=== PATIENT | male | born 1985 | race Caucasian/White ===

== ENCOUNTER 2018-08-12 21:07 | Observation (INO) | payer OTHER ==
[~2018-08-12] VITALS: Ht 177.8 cm; Wt 96.4 kg
[2018-08-12 21:15] VITALS: Ht 177.8 cm; Wt 96.4 kg
--- NOTE | 2018-08-12 22:06 | NUR ---
PATIENT [id number] PRESENTS TO THE ED WITH C/O ABD PAIN, NAUSEA, DIARRHEA AND BILATERAL LOWER BACK FLANK PAIN. PATIENT STATES HE STARTED FEELING SICK 3 DAYS AGO- NAUSEA STARTED TODAY. PATIENT WENT TO URGENT CARE AND WAS TOLD HE HAD BLOOD IN HIS URINE AND TO GO TO ER. PATIENTS BREATHING EVEN AND UNLABORED. SKIN WARM, DRY AND INTACT- PLACED PATIENT IN GOWN AND ON MONITORS FOR CONTINUED OBSERVATION.
--- NOTE | 2018-08-12 22:24 | NUR ---
DR STAPLETON BEDSIDE MSE
[2018-08-12 23:34] LABS: UA SPECIFIC GRAVITY <=1.005 (1.005-1.035); microscopic required? YES; urine erythrocyte 1+ (NEGATIVE)
[2018-08-13 00:02] LABS: BASOPHIL % 0.3 % (0-2); PLATELET COUNT 302 x10^3mcL (130-400); RED CELL DISTRIBUTION WIDTH 13.1 % (11.5-14.5)
--- NOTE | 2018-08-13 00:59 | NUR ---
CALLED LAB REQUESTING RESULTS OF HEMATOLOGY AND CHEMISTRY.
[2018-08-13 01:06] LABS: CALCIUM 9.3 mg/dL (8.5-10.1); CARBON DIOXIDE 32.1 mmol/L (21-32); CREATININE SERUM 2.4 mg/dL (0.7-1.3); POTASSIUM SERUM 4.5 mmol/L (3.5-5.1)
[2018-08-13 01:13] LABS: BILIRUBIN TOTAL 0.5 mg/dL (0.20-1.00); TOTAL PROTEIN, SERUM 7.9 g/dL (6.4-8.2)
--- NOTE | 2018-08-13 01:26 | NUR ---
PATIENT LYING ON GURNEY- BREATHING EVEN AND UNLABORED. NO SS OF DISTRESS NOTED. WILL CONTINUE TO MONITOR.
--- NOTE | 2018-08-13 03:23 | NUR ---
PATIENT LYING ON GURNEY- WATCHING TV. NO SS OF DISTRESS NOTED. WILL CONTINUE TO MONITOR.
--- NOTE | 2018-08-13 05:30 | NUR ---
PROVIDED PATIENT A MEAL AND SOMETHING TO DRINK. OK'D BY DR. STAPLETON.
--- NOTE | 2018-08-13 06:43 | NUR ---
PROVIDED WARM BLANKETS FOR PATIENT COMFORT. PATIENT SLEEPING ON GURNEY WAITING FOR ROOM ASSIGNMENT TO ADMIT. PATIENT BREATHING EVEN AND UNLABORED. NO OTHER SS OF DISTRESS NOTED.
--- NOTE | 2018-08-13 06:57 | NUR ---
PROVIDED REPORT TO ANDRES MARMOLEJO FOR FURTHER CARE OF PATIENT.
--- NOTE | 2018-08-13 07:11 | NUR ---
REPORT RECEIVED FROM ANDRES MILLER TO ASSUME CARE OF PT. PT LYING ON BACK NO S/S OF DISTRESS. RESPIRATIONS E/U. FAMILY AT BEDSIDE. VITALS STABLE WILL CONTINUE TO AWAIT FOR ROOM AND ADMIT ORDERS
--- NOTE | 2018-08-13 08:20 | NUR ---
PT AMBULATED TO RESTROOM WITH NO S/S OF DISTRESS. DENEIS PAIN. ALERT AND ORIENTED. WILL COTNINUE TO MONITOR
--- NOTE | 2018-08-13 08:48 | NUR ---
RECEIVED REPORT FROM JALEEL CAMPOS IN ED. AWAITING PATIENT ARRIVAL TO FLOOR.
--- NOTE | 2018-08-13 08:52 | NUR ---
REPORT GIVEN TO CHUNG TO ASSUME CARE OF PT
--- NOTE | 2018-08-13 11:56 | NUR ---
IN TO BEGIN FLUIDS. PT IV IS NOT FLUSHING. WILL INSERT NEW IV.
[2018-08-13 13:07] VITALS: BP 132/73
[2018-08-13 14:05] VITALS: BP 119/76
--- NOTE | 2018-08-13 15:48 | NUR ---
IN TOP SEE PATIENT AND ATTEMPT INSERTION OF IV. ATTEMPTED X2 WITH NO SUCCESS. PT REFUSING FURTHER ATTEMPTS UNTIL HE HAS HAD A CHANCE TO REST.
--- NOTE | 2018-08-13 19:47 | NUR ---
REPORT GIVEN TO SHAQUILLE CAMPOS. PT RESTING COMFORTABLY IN BED WITH MOTHER AT BEDSIDE. IV TO LFA IS PATENT AND INFUSING LR @ 80 ML/HR. NO REDNESS OR PAIN. PT ON ROOM AIR. NO C/O SOB AND NO DISTRESS NOTED. ALL QUESTIONS AND CONCERNS ADDRESSED.
--- NOTE | 2018-08-13 20:00 | NUR ---
PT IS A/A/O X4, MOTHER AT BEDSIDE. PT DENIES DIZZINESS AND HEADACHE. BREATH SOUNDS CLEAR. BREATHING EVEN AND UNLABORED ON ROOM AIR. DENIES CHEST PAIN AND PRESSURE THUS FAR. BOWEL SOUNDS ACTIVE. NO C/O N/V AND ABD PAIN. DENIES FLANK PAIN THUS FAR. IV INTACT ON THE LEFT FOREARM INFUSING WITH LR AT 80 ML/HR. MADE PT COMFORTABLE. PLACED CALL LIGHT WITH IN REACH. WILL CONTINUE TO MONITOR.
[2018-08-13 20:58] VITALS: BP 119/777
--- NOTE | 2018-08-13 22:37 | NUR ---
PT C/O PAIN. GAVE PT NORCO PO. PT TOLERATED IT WELL. WILL CONTINUE TO MONITOR.
--- NOTE | 2018-08-14 01:36 | NUR ---
PT RESTING WITH EYES CLOSED. NO DISTRESS AND DISCOMFORT NOTED. MOTHER AT BEDSIDE. WILL CONTINUE TO MONITOR.
--- NOTE | 2018-08-14 04:47 | NUR ---
PT C/O FLANK PAIN. GAVE PT NORCO PO. PT TOLERATED IT WELL. WILL CONTINUE TO MONITOR.
[2018-08-14 05:57] VITALS: BP 100/61
[2018-08-14 06:40] LABS: ALBUMIN 3.6 g/dL (3.4-5.0); BILIRUBIN TOTAL 0.7 mg/dL (0.20-1.00); CREATININE SERUM 2.3 mg/dL (0.7-1.3); MAGNESIUM 2.4 mg/dL (1.8-2.4); PHOSPHOROUS 4.6 mg/dL (2.5-4.9); POTASSIUM SERUM 4.9 mmol/L (3.5-5.1); TOTAL PROTEIN, SERUM 7.4 g/dL (6.4-8.2)
--- NOTE | 2018-08-14 06:56 | NUR ---
PT RESTING WITH EYES CLOSED. EASILY AROUSABLE WITH VERBAL STIMULI. NO C/O PAIN THUS FAR. IV INTACT AND INFUSING ORDERED. MADE PT COMFORTABLE. WILL ENDORSE TO THE AM NURSE ACCORDINGLY.
[2018-08-14 07:13] LABS: BASOPHIL % 0.5 % (0-2); PLATELET COUNT 304 x10^3mcL (130-400); RED CELL DISTRIBUTION WIDTH 12.8 % (11.5-14.5)
--- NOTE | 2018-08-14 07:40 | NUR ---
RC'D PT RESTING IN BED WITH NO APPARENT SIGNS OF DISTRESS. A/A/O/X4, SPEECH CLEAR AND APPROPRIATE. DENIES DANIEL/DIZZINESS. ON TELE, DENIES CHEST PAIN/PRESSURE. PALP PULSES, NO EDEMA NOTED. RESPIRATIONS EQUAL AND UNLABORED. LUNGS CTA. ON RA, DENIES SOB. ABDOMEN SOFT AND NONTENDER. ACTIVE BS. DENIES N/V. VOIDS FREELY. AMBULATORY. SKIN W/D/I. IV APTENT AND INTACT. BED IN LOW POSITION. CALL LIGHT IN REACH. WILL CONTINUE TO MONITOR
--- NOTE | 2018-08-14 08:18 | NUR ---
PT RESTING IN BED WITH NO APPARENT SIGNS OF DISTRESS. RESPIRATIONS EQUAL AND UNLABORED. ON RA, DENIES SOB. PT DENIES EXCESSIVE PAIN AT THIS TIME JUST REPORTS "BEING TIRED FROM NOT SLEEPING ALOT". BED IN LOW POSITION. CALL LIGHT IN REACH. WILL CONTINUE TO MONITOR
[2018-08-14 09:04] VITALS: BP 103/70
--- NOTE | 2018-08-14 11:31 | NUR ---
PT RESTING IN BED WITH NO APPARENT SIGNS OF DISTRESS. RESPIRATIONS EQUAL AND UNLABROED. ON RA, DENIES SOB. PT DENIES EXCESSIVE PAIN AT THIS TIME. BED IN LOW PSOITION. CALL LIGHT IN REACH. WILL CONTINUE TO MONITOR
[2018-08-14 12:51] VITALS: BP 103/70
[2018-08-14 12:55] VITALS: BP 107/66
--- NOTE | 2018-08-14 13:53 | NUR ---
PT PROVIDED WITH DC HOME INSTRUCTIONS. PT GIVEN MEDICATION EDUCATION. PT INFORMED TO MAKE F/U APPT WITH PCP . PT INFORMED TO F/U WITH NEPHRO IN 3-4 WKS PER MD REQUEST. PT INFORMED THAT IF WORSENING S/S WERE TO ARISE TO RETURN TO ED OR REPORT TO PCP. PT AND FAMILY VERBALIZED UNDERSTANDING OF INSTRUCTIONS. TELE AND IV DC'D, CATHETER INTACT. NO ERRYTHEMA/INFLAMMATION/DISCOMFORT NOTED. PT FREE OF ANY APPARENT SIGNS OF DISTRESS WITH ALL PERSONAL BELONGINGS IN HAND TAKEN DOWN TO LOBBY WITH FAMILY AND RESEARCH PROFESSIONAL PRESENT
== END 2018-08-14 13:54 | disposition home or self-care (01) | DRG 918 ==
LOC: ED 21:07 → MU 08-13 08:32 → DU 08-13 08:32
PROVIDERS: Emergency Medicine; ADMIT Internal Medicine Pulmonary Disease
DX: T39.391A Poisoning by other nonsteroidal anti-inflammatory drugs [NSAID], accidental (unintentional), initial encounter (principal); N17.9 Acute kidney failure, unspecified; R07.89 Other chest pain; Z68.30 Body mass index [BMI] 30.0-30.9, adult; Y92.009 Unspecified place in unspecified non-institutional (private) residence as the place of occurrence of the external cause
CPT/HCPCS: G0378; J7120; Q0092